=== PATIENT | male | born 1960 ===

== ENCOUNTER 2022-10-23 16:43 | Emergency (ER) | payer SELFPAY ==
[~2022-10-23] VITALS: Ht 166 cm; Wt 79.0 kg
[2022-10-23] MEDS ORDERED: hydrALAZINE (APESOLINE) 20 MG/ML VIAL IV STA (17:03)
[2022-10-23] MEDS ORDERED: FUROSEMIDE 40 MG/4 ML INJ (LASIX) IVP STA (17:03)
--- NOTE | 2022-10-23 17:09 | ED Cardiac General ---
History of Present Illness General Chief Complaint: Cardiac/General Problems Stated Complaint: LT LEG SWELLING/PAIN,HIGH BP Nursing Triage Note: PT STATES DIABETIC, KIDNEY PROBLEMS AND SWELLING IN LT LOWER LEG, RT LEG SWELLING WENT AWAY, B/P OF 190-200 SYSTOLIC, PT CAME FROM [facility] History of Present Illness Date Seen by Provider: Oct 23, 2022 Time Seen by Provider: 16:50 Initial Comments 61 year old male presents for hypertension from [facility] clinic. 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 He is diabetic but glucose has been staying around 120s. History of kidney disease but reports labs have been better over the last 12-18 months. They moved here from [place] 2 years ago. No CAD or other cardiac history. Denies Chest Pain or SOA. Timing/Duration: 1 week Severity: mild Prior CP/Workup: no prior chest pain, no prior cardiac workup NTG SL MOLD MAKER HELPER: No ASA po MOLD MAKER HELPER: No Associated Systoms: No Chest Pain, No Cough, No Malaise, No Nausea/Vomiting, No Shortness of Air, No Syncope, No Weakness Allergies and Home Medications Allergies Coded Allergies: No Known Drug Allergies (Unverified , 10/23/22) Patient Home Medication List Home Medication List Reviewed: Yes Hydrochlorothiazide (Hydrochlorothiazide) 12.5 Mg Tablet, 12.5 MG PO DAILY Prescribed by: LEONARDO HERNANDEZ on 10/23/22 2636 Review of Systems Review of Systems Constitutional: no symptoms reported, see HPI EENTM: No Symptoms Reported, See HPI Respiratory: No Symptoms Reported, See HPI; Denies Cough, Denies SOA With Exertion, Denies SOA at Rest Cardiovascular: See HPI, Other (hypertension) Gastrointestinal: No Symptoms Reported, See HPI Genitourinary: No Symptoms Reported, See HPI All Other Systems Reviewed Negative Unless Noted: Yes Past Xeoycwl-[id number]-Bzjgmc Hx Patient Social History Tobacco Use?: Yes Smoking Status: Former Smoker Substance use?: No Alcohol Use?: No Immunizations Up To Date Second COVID19 Vaccination Hunter: YES Past Medical History Surgery/Hospitalization HX: HTN, DIABETIC TYPE I, KIDNEY DISEASE Family Medical History Reviewed Nursing Family Hx Physical Exam Vital Signs Vital Signs - First Documented 10/23/22 16:47 Temp 35.7 Pulse 75 Resp 20 B/P (MAP) 226/100 (142) Pulse Ox 98 O2 Delivery Room Air Capillary Refill : Less Than 3 Seconds Height, Weight, BMI Height: '" Weight: lbs. oz. kg; 28.00 BMI Method: General Appearance: No Apparent Distress, WD/WN Neck: Full Range of Motion, Normal Inspection, Non Tender, Supple Respiratory: Chest Non Tender, Lungs Clear, Normal Breath Sounds Cardiovascular: Regular Rate, Rhythm, No JVD, No Murmur, Normal Peripheral Pulses Gastrointestinal: Normal Bowel Sounds, Non Tender, Soft Extremity: Normal Capillary Refill, Normal Range of Motion, Non Tender, No Calf Tenderness; No Calf Tenderness; Pedal Edema (1+ R LE; 2+ L LE, but constrictive knee brace to left knee. This was removed to improve swelling in left leg. ) Neurologic/Psychiatric: Alert, Oriented x3, No Motor/Sensory Deficits, Normal Mood/Affect Skin: Normal Color, Warm/Dry Progress/Results/Core Measures Results/Orders Lab Results Laboratory Tests Test 10/23/22 16:57 Range/Units White Blood Count 9.1 4.3-11.0 10^3/uL Red Blood Count 4.24 L 4.30-5.52 10^6/uL Hemoglobin 11.9 L 13.3-17.7 g/dL Hematocrit 35 L 40-54 % Mean Corpuscular Volume 83 80-99 fL Mean Corpuscular Hemoglobin 28 25-34 pg Mean Corpuscular Hemoglobin Concent 34 32-36 g/dL Red Cell Distribution Width 13.7 10.0-14.5 % Platelet Count 322 130-400 10^3/uL Mean Platelet Volume 9.4 9.0-12.2 fL Immature Granulocyte % (Auto) 0 % Neutrophils (%) (Auto) 68 42-75 % Lymphocytes (%) (Auto) 21 12-44 % Monocytes (%) (Auto) 6 0-12 % Eosinophils (%) (Auto) 4 0-10 % Basophils (%) (Auto) 1 0-10 % Neutrophils # (Auto) 6.2 1.8-7.8 10^3/uL Lymphocytes # (Auto) 1.9 1.0-4.0 10^3/uL Monocytes # (Auto) 0.6 0.0-1.0 10^3/uL Eosinophils # (Auto) 0.3 0.0-0.3 10^3/uL Basophils # (Auto) 0.1 0.0-0.1 10^3/uL Immature Granulocyte # (Auto) 0.0 0.0-0.1 10^3/uL Sodium Level 140 135-145 MMOL/L Potassium Level 4.2 3.6-5.0 MMOL/L Chloride Level 111 H 98-107 MMOL/L Carbon Dioxide Level 21 21-32 MMOL/L Anion Gap 8 5-14 MMOL/L Blood Urea Nitrogen 39 H 7-18 MG/DL Creatinine 1.73 H 0.60-1.30 MG/DL Estimat Glomerular Filtration Rate 45 BUN/Creatinine Ratio 23 Glucose Level 150 H 70-105 MG/DL Calcium Level 9.3 8.5-10.1 MG/DL Corrected Calcium 9.5 8.5-10.1 MG/DL Total Bilirubin 0.3 0.1-1.0 MG/DL Aspartate Amino Transf (AST/SGOT) 16 5-34 U/L Alanine Aminotransferase (ALT/SGPT) 18 0-55 U/L Alkaline Phosphatase 107 40-136 U/L B-Type Natriuretic Peptide 471.9 H <100.0 PG/ML Total Protein 8.2 6.4-8.2 GM/DL Albumin 3.8 3.2-4.5 GM/DL My Orders Orders - LEONARDO HERNANDEZ Bnp [place] (10/23/22 16:55) Cbc With Automated Diff (10/23/22 16:55) Comprehensive Metabolic Panel (10/23/22 16:55) Furosemide Injection (Lasix Injection) (10/23/22 17:03) Hydralazine Injection (Apresoline Inject (10/23/22 17:03) Vital Signs/I&O 10/23/22 16:47 Temp 35.7 Pulse 75 Resp 20 B/P (MAP) 226/100 (142) Pulse Ox 98 O2 Delivery Room Air Blood Pressure Mean: 142 Progress Progress Note : Time: 16:50 Progress Note inital B/P 226/100, will check labs, monitor B/P q 15 min. Hydralazine 10 mg IV and Lasix 40 mg IV. 1720 B/P 193/92, patient continues to have no complaints. 1730 186/92 1745 165/80, all labs normal with exception of slight elevation in BNP and Creatinine of 1.73. First visit to this ED and patient unsure of previous Creatinine to compare. Recommended adding hydrochlorothiazide to his losartan. He has approximately 30-day supply at this time so we will give a separate pill at this time to take with his daily meds and then he can do a combination medicine at the time of his next refill. Discharge instructions and return precautions reviewed with him. Departure Impression Primary Impression: Hypertension Qualified Codes: I10 - Essential (primary) hypertension Additional Impressions: Diabetes Qualified Codes: E11.9 - Type 2 diabetes mellitus without complications; Z79.4 - terminal gauger (current) use of insulin Kidney disease Disposition: HOME, SELF-CARE Condition: Improved Departure-Patient Inst. Decision time for Depature: 17:10 Referrals: KERI POOL APRN (PCP/Family) Primary Care Physician Patient Instructions: High Blood Pressure (DC), DASH Diet Add. Discharge Instructions: Continue to increase water in diet, adhere to a low-sodium diet. Continue to take all home medications as prescribed, add 1 hydrochlorothiazide when you take your losartan. When you follow-up with Keri, ask her about doing a combination losartan and hydrochlorothiazide. Follow-up with Keri in approximately 1 week, sooner as needed. Return to the emergency department for new, urgent healthcare needs. All discharge instructions reviewed with patient and/or family. Voiced understanding. Scripts Hydrochlorothiazide (Hydrochlorothiazide) 12.5 Mg Tablet 12.5 MG PO DAILY, #30 TAB 0 Refills Prov: LEONARDO HERNANDEZ 10/23/22 Copy Copies To 1: JASBIR US AMY ARNP Oct 23, 2022 17:09
[2022-10-23 17:12] LABS: BASOPHILS # (AUTO) 0.1 10^3/uL (0.0-0.1); BASOPHILS % (AUTO) 1 % (0-10); EOSINOPHILS # (AUTO) 0.3 10^3/uL (0.0-0.3); EOSINOPHILS % (AUTO) 4 % (0-10); HEMATOCRIT 35 % (40-54); HEMOGLOBIN 11.9 g/dL (13.3-17.7); LYMPHOCYTES # (AUTO) 1.9 10^3/uL (1.0-4.0); LYMPHOCYTES % (AUTO) 21 % (12-44); MEAN CORPUSCULAR HEMOGLOBIN 28 pg (25-34); MEAN CORPUSCULAR HGB CONC 34 g/dL (32-36); MEAN CORPUSCULAR VOLUME 83 fL (80-99); MEAN PLATELET VOLUME 9.4 fL (9.0-12.2); MONOCYTES # (AUTO) 0.6 10^3/uL (0.0-1.0); MONOCYTES % (AUTO) 6 % (0-12); NEUTROPHILS # (AUTO) 6.2 10^3/uL (1.8-7.8); NEUTROPHILS % (AUTO) 68 % (42-75); PLATELET COUNT 322 10^3/uL (130-400); WHITE BLOOD COUNT 9.1 10^3/uL (4.3-11.0)
[2022-10-23 17:19] LABS: ALBUMIN 3.8 GM/DL (3.2-4.5); POTASSIUM 4.2 MMOL/L (3.6-5.0)
[2022-10-23 17:20] LABS: CALCIUM 9.3 MG/DL (8.5-10.1)
[2022-10-23 17:21] LABS: TOTAL PROTEIN 8.2 GM/DL (6.4-8.2)
[2022-10-23 17:23] LABS: BILIRUBIN,TOTAL 0.3 MG/DL (0.1-1.0)
[2022-10-23 17:25] LABS: CREATININE SERUM 1.73 MG/DL (0.60-1.30)
[2022-10-23] MEDS ORDERED: HYDR12.56 PO (17:56)
[2022-10-23 18:08] VITALS: BP 173/84
== END 2022-10-23 18:12 | disposition home or self-care (01) ==
LOC: ER 16:46
DX: I10 Essential (primary) hypertension (principal); E10.9 Type 1 diabetes mellitus without complications; N28.9 Disorder of kidney and ureter, unspecified; Z87.891 Personal history of nicotine dependence
CPT/HCPCS: 36415; 80053; 83880; 85025; 99281